=== PATIENT | male | born 1990 | race Caucasian/White ===

== ENCOUNTER 2018-05-18 00:39 | Emergency (ER) | payer OTHER ==
[2018-05-18] MEDS ORDERED: fentaNYL 100 MCG/2 ML INJ IVP ONE (00:50)
[2018-05-18] MEDS ORDERED: ONDANSETRON 4 MG/2 ML VIAL IVP ONE (00:50)
[2018-05-18] MEDS ORDERED: NS 1,000 ML IV ONE (00:50)
--- NOTE | 2018-05-18 00:52 | EDPHY ---
H & P Stated Complaint: RLQ pain x2 hours, states had pizza 2hours prior Time Seen by Provider: 05/18/18 00:45 HPI/ROS: Chief Complaint: Abdominal pain HPI: 28-year-old male began having dental pain 2 hr ago. Pain is right upper quadrant. Patient states being began about 2 hr after he ate pizza. Some nausea no vomiting. No diarrhea or constipation. Pain is about a 6/10. No aggravating or alleviating factors. He had a similar episode 2 years ago. No fevers or chills. No cough. ROS: 10 systems were reviewed and were negative except those elements noted in the HPI. PMH: Denies Social History: No smoking, occasional alcohol, occasional marijuana Family History: non-contributory Physical Exam: Gen: Awake, Alert, No Distress HEENT: Nose: no rhinorrhea Eyes: PERRLA, EOMI Mouth: Moist mucosa Neck: Supple, no JVD Chest: nontender, lungs clear to auscultation Heart: S1, S2 normal, no murmur Abd: Soft, moderate right upper quadrant tenderness, no guarding Back: no CVA tenderness, no midline tenderness Ext: no edema, non-tender Skin: no rash Neuro: CN II-XII intact, Sensation grossly intact, Strength 5/5 in bilateral upper and lower extremities - Personal History Current Tetanus Diphtheria and Acellular Pertussis (TDAP): Yes - Medical/Surgical History Hx Asthma: No Hx Chronic Respiratory Disease: No Hx Diabetes: No Hx Cardiac Disease: No Hx Renal Disease: No Hx Cirrhosis: No Hx Alcoholism: No Hx HIV/AIDS: No Hx Splenectomy or Spleen Trauma: No Other PMH: Denies - Social History Smoking Status: Current some day smoker Constitutional: Initial Vital Signs Temperature (C) 36.7 C 05/18/18 00:41 Heart Rate 76 05/18/18 00:41 Respiratory Rate 17 05/18/18 00:41 Blood Pressure 131/78 H 05/18/18 00:41 O2 Sat (%) 97 05/18/18 00:41 O2 Delivery Mode Room Air Allergies/Adverse Reactions: Penicillins Allergy (Unknown, Verified 05/18/18 00:41) Sulfa (Sulfonamide Antibiotics) Allergy (Unknown, Verified 05/18/18 00:41) Medical Decision Making - Diagnostics Imaging Results: Gallbladder ultrasound is normal, normal ducts, study interpreted by Dr. Arguello. ED Course/Re-evaluation: 28-year-old male with right upper quadrant abdominal pain after eating pizza. Gallbladder ultrasound is negative. Repeat examination is soft and benign. He is tolerating p.o.. Pain is controlled. Will discharge with follow-up with primary care physician. No evidence of acute surgical abdominal process at this time. - Data Points Laboratory Results: Laboratory Results 05/18/18 01:00 05/18/18 01:00 05/18/18 05/18/18 01:00 01:00 WBC 8.26 10^3/uL 10^3/uL (3.80-9.50) RBC 5.33 10^6/uL 10^6/uL (4.40-6.38) Hgb 17.0 g/dL g/dL (13.7-17.5) Hct 47.7 % % (40.0-51.0) MCV 89.5 fL fL (81.5-99.8) MCH 31.9 pg pg (27.9-34.1) MCHC 35.6 g/dL g/dL (32.4-36.7) RDW 11.4 % L % (11.5-15.2) Plt Count 226 10^3/uL 10^3/uL (150-400) MPV 9.0 fL fL (8.7-11.7) Neut % (Auto) 44.3 % % (39.3-74.2) Lymph % (Auto) 44.2 % % (15.0-45.0) Baxter % (Auto) 9.0 % % (4.5-13.0) Eos % (Auto) 1.9 % % (0.6-7.6) Baso % (Auto) 0.4 % % (0.3-1.7) Nucleat RBC Rel Count 0.0 % % (0.0-0.2) Absolute Neuts (auto) 3.66 10^3/uL 10^3/uL (1.70-6.50) Absolute Lymphs (auto) 3.65 10^3/uL H 10^3/uL (1.00-3.00) Absolute Monos (auto) 0.74 10^3/uL 10^3/uL (0.30-0.80) Absolute Eos (auto) 0.16 10^3/uL 10^3/uL (0.03-0.40) Absolute Basos (auto) 0.03 10^3/uL 10^3/uL (0.02-0.10) Absolute Nucleated RBC 0.00 10^3/uL 10^3/uL (0-0.01) Immature Gran % 0.2 % % (0.0-1.1) Immature Gran # 0.02 10^3/uL 10^3/uL (0.00-0.10) Sodium 138 mEq/L mEq/L (135-145) Potassium 3.9 mEq/L mEq/L (3.5-5.2) Chloride 109 mEq/L mEq/L (97-110) Carbon Dioxide 21 mEq/l L mEq/l (22-31) Anion Gap 8 mEq/L mEq/L (6-14) BUN 20 mg/dL mg/dL (7-23) Creatinine 0.9 mg/dL mg/dL (0.7-1.3) Estimated GFR > 60 Glucose 129 mg/dL H mg/dL (70-100) Calcium 8.9 mg/dL mg/dL (8.5-10.4) Total Bilirubin 0.4 mg/dL mg/dL (0.1-1.4) AST 25 IU/L IU/L (17-59) ALT 24 IU/L IU/L (21-72) Alkaline Phosphatase 66 IU/L IU/L (38-126) Total Protein 6.6 g/dL g/dL (6.3-8.2) Albumin 3.9 g/dL g/dL (3.5-5.0) Lipase 202 IU/L IU/L (23-300) Medications Given: Discontinued Medications Famotidine (Pepcid) 20 mg IVP EDNOW ONE Stop: 05/18/18 02:05 Last Admin: 05/18/18 02:10 Dose: 20 mg Fentanyl (Sublimaze) 50 mcg IVP EDNOW ONE Stop: 05/18/18 00:51 Last Admin: 05/18/18 01:04 Dose: 50 mcg Sodium Chloride (Ns) 1,000 mls @ 0 mls/hr IV ONCE ONE; Wide Open PRN Reason: Protocol Stop: 05/18/18 00:51 Last Admin: 05/18/18 01:03 Dose: 1,000 mls Ketorolac Tromethamine (Toradol) 15 mg IVP EDNOW ONE Stop: 05/18/18 02:05 Last Admin: 05/18/18 02:10 Dose: 15 mg Ondansetron HCl (Zofran) 4 mg IVP EDNOW ONE Stop: 05/18/18 00:51 Last Admin: 05/18/18 01:03 Dose: 4 mg Departure - Departure Disposition: Home, Routine, Self-Care Clinical Impression: Abdominal pain Condition: Good Instructions: Acute Abdominal Pain (ED) Additional Instructions: Eat a bland diet for the next 48 hr. Follow up with primary care physician in 2-3 days for further evaluation. Return to the emergency department for increasing abdominal pain, uncontrolled nausea vomiting, fevers, chills, or any other concerns. Referrals: NONE *PRIMARY CARE P,. [Primary Care Provider] - As per Instructions
[2018-05-18 01:13] LABS: PLATELET COUNT 226 10^3/uL (150-400)
[2018-05-18] MEDS ORDERED: KETOROLAC 15 MG/1 ML SDV IVP ONE (02:04)
[2018-05-18] MEDS ORDERED: FAMOTIDINE 20 MG/2 ML SDV IVP ONE (02:04)
[2018-05-18] MEDS ORDERED: FAMOTIDINE 20 MG TAB ONE (02:05)
[2018-05-18] MEDS ORDERED: KETOROLAC 15 MG/1 ML SDV ONE (02:06)
[2018-05-18 02:45] VITALS: BP 120/71
== END 2018-05-18 02:45 | disposition home or self-care (01) ==
DX: R11.11 Vomiting without nausea (principal); E86.9 Volume depletion, unspecified; Z88.0 Allergy status to penicillin; Z88.2 Allergy status to sulfonamides
CPT/HCPCS: 96374; J1885; J2405; J3010